=== PATIENT | male | born 1955 | race Caucasian/White ===

== ENCOUNTER 2020-12-23 17:24 | Outpatient (REF) | payer OTHER, SELFPAY ==
[2020-12-23 19:46] LABS: Calculated LDL 72 mg/dL (<100); Cholesterol 155 mg/dL (<200); HDL Cholesterol 37 mg/dL (40-60); Triglyceride 230 mg/dL (<150)
== END 2020-12-23 17:25 | disposition home or self-care (01) ==
LOC: NCHCN 17:24
PROVIDERS: PCP Internal Medicine; Visit Provider Internal Medicine
DX: Z00.00 Encounter for general adult medical examination without abnormal findings (principal); Z13.220 Encounter for screening for lipoid disorders
CPT/HCPCS: 80061; 82947

== ENCOUNTER 2023-01-07 18:33 | Outpatient (REF) | payer OTHER, SELFPAY ==
[2023-01-07 19:32] LABS: Calculated LDL 91 mg/dL (<100); Cholesterol 180 mg/dL (<200); HDL Cholesterol 44 mg/dL (40-60); Triglyceride 227 mg/dL (<150)
[2023-01-08 09:31] LABS: Glucose 107 mg/dL (74-106)
== END 2023-01-07 18:34 | disposition home or self-care (01) ==
LOC: NCHCN 18:33
PROVIDERS: PCP Internal Medicine; Visit Provider Internal Medicine
DX: Z00.00 Encounter for general adult medical examination without abnormal findings (principal); Z13.220 Encounter for screening for lipoid disorders; Z13.1 Encounter for screening for diabetes mellitus
CPT/HCPCS: 80061; 82947; 84153

== ENCOUNTER 2023-05-19 12:33 | Outpatient (REF) | payer OTHER, SELFPAY ==
--- OUTSIDE RECORDS SUMMARY | 2023-05-19 12:36 | XMS_ITS | Continuity of Care Document ---
Author Name Unknown Organization [facility] Address [address] [place] [address] Care Team Providers Care Video Specialist Name Role Phone Griffin Dick Primary Care Physician Encounter [facility] Date(s): 02/01/23 - 02/01/[address] [phone] Discharge Disposition: Home or Self Care Attending Physician: Griffin Dick MD Admitting Physician: Griffin Dick MD Referring Physician: Griffin Dick MD Results Laboratory List Name Date Lyme Antibody [facility] 02/01/23 Most recent to oldest [Reference Range]: 1 Lyme Ab [facility] [Negative] Negative 1 *NA* (02/01/23 1:30 PM) 1Result Comment: Test performed [place] [address] Social History Social History Type Response Sex Male Patient Care team information Care Team Personnel Name: Griffin Dick MD Position: No Access Member Role: Informed Provider Address: Address: [address] [address]
--- OUTSIDE RECORDS SUMMARY | 2023-05-19 12:36 | XMS_ITS | Continuity of Care Document ---
Author Name Unknown Organization [facility] Address [address] [place] [address] Care Team Providers Care Hardware Supplies Sales Representative Name Role Phone Griffin Dick Primary Care Physician [facility] Date[facility]s): 03/08/23 - 03/08/[address] [address] Discharge Disposition: Home or Self Care Attending Physician: Griffin Dick MD Admitting Physician: Griffin Dick MD Referring Physician: Griffin Dick MD Medications atorvastatin 80 mg oral tablet 30 tab, 0 Refill(s) Start Date: 03/09/23 Status: Ordered doxycycline hyclate 100 mg oral capsule 28 EA, TAKE ONE CAPSULE BY MOUTH TWICE A DAY UNTIL GONE, 0 Refill(s) Start Date: 03/09/23 Status: Ordered Metoprolol Succinate ER 25 mg oral tablet, extended release 30 tab, 0 Refill(s) Start Date: 03/09/23 Status: Ordered Social History Social History Type Response Sex Male Cardiac stress echo study * Event Display: Echocardiogram Stress Authored Date: [id number] Exercise stress test study * Yen Chun: PERFORM Derek Prieto MD: MODIFY, MODIFY Derek Prieto MD: MODIFY Event Display: Stress ECG Authored Date: [id number] JO-ANN CERVANTES :1955 Age:68 years Sex:Male Visit Date:03/08/2023 Primary Care Physician: Griffin Dick MD Ordering Provider :??Griffin Primeau ? ETT?Mychal Protocol Indication:??CP MPHR:??150 85% MPHR:??127 ?Stage ??Speed ??Incline ??Heart rate ??Blood Pressure ??Comments ??1 ??2.7 km/hr ??10% ?73 ??114/60 ?98% ??2 ??4.02 km/hr ??12% ?83 ??130/64 ?98% ??3 ??5.47 km/hr ??14% ?96 ??130/64 ?99% ??4 ??6.76 km/hr ??16% ?111 ??/ ?Breathing harder, leg pain ??5 ??8.05 km/hr ??18% ?/ ?6 ??8.85 km/hr ??20% ?/ ?7 ??9.65 km/hr ??22% ?/ ?8 ??10.46 km/hr ??24% ?/ ?Recovery ?/ ?2:00 ?/ ?4:00 ?/ ? Total Time:??11:02 Max Heart Rate:??111 % of MPHR achieved:??74 METS:13.70 ?? Functional Capacity: ??High?? Peak BP:??152/90 Chest Pain: ??Present, but not limiting? Reason Test Terminated:??Didn't want to go any faster, legs hurting, breathing hard ST Changes: ??1??mm Direction, leads:?? Arrhythmias:??NSR Heart rate and BP Response:??appropriate Kiran Treadmill Score: +2?MODERATE RISK, with predicted 5-year survival >90%.? Summary Impression:??Non-diagnostic stress test due to inability to achieve 85% MPHR. No evidence of ischemia at submaximal heart rate. Associated echocardiogram reassuring. Excellent exercise tolerance.?? Electronically Signed on 03/08/23 02:44 PM Yen Chun Electronically Signed on 03/08/23 04:44 PM Derek Prieto MD Electronically Signed on 03/08/23 05:09 PM Derek Prieto MD Reviewed by: Derek Prieto MD, Heather L Patient Care team information Care Team Personnel Name: Griffin Dick MD Position: No Access Member Role: Informed Provider Address: Address: [address] [address]- [place] Care Team Related Persons Name: DOMINICK CERVANTES Address: Home
--- OUTSIDE RECORDS SUMMARY | 2023-05-19 12:36 | XMS_ITS | Continuity of Care Document ---
Author Name Unknown Organization [facility] Address [address] [place] [address] Care Team Providers Care Video Clerk Name Role Phone Griffin Dick Primary Care Physician En[facility] Date(s): 02/26/23 - 02/26/[address] [phone] Discharge Disposition: Home or Self Care Attending Physician: Griffin Dick MD Admitting Physician: Griffin Dick MD Referring Physician: Griffin Dick MD Results Laboratory List Name Date Basic Metabolic Panel 02/26/23 Troponin-I 02/26/23 Most recent to oldest [Reference Range]: 1 BUN [7-18 mg/dL] 19 mg/dL *HI* (02/26/23 12:01 PM) Glucose Level [74-106 mg/dL] 98 mg/dL (02/26/23 12:01 PM) Potassium Level [3.5-5.1 mmol/L] 3.9 mmo l/L (02/26/23 12:01 PM) Troponin-I [0.0-76.2 pg/mL] 5.5 pg/mL (02/26/23 12:01 PM) Sodium Level [136-145 mmol/L] 141 mmol/L (02/26/23 12:01 PM) Calcium Level [8.5-10.1 mg/dL] 8.8 mg/dL (02/26/23 12:01 PM) CO2 [21-32 mmol/L] 33 mmol/L *HI* (02/26/23 12:01 PM) eGFR Non-AA [>=60] 64 (4/28/23 12:01 PM) eGFR AA [>=60] 64 (02/26/23 12:01 PM) Chloride Level [98-107 mmol/L] 102 mmol/ L (02/26/23 12:01 PM) Creatinine Level [0.70-1.30 mg/dL] 1.22 mg/dL (02/26/23 12:01 PM) Social History Social History Type Response Sex Male Patient Care team information Care Team Personnel Name: [facility], Griffin Crenshaw MD Position: No Access Member Role: Informed Provider Address: Address: [id number] [place] [address] Care Team Related Persons Name: DOMINICK CERVANTES
[2023-05-19 20:29] LABS: Uric Acid 5.5 mg/dL (3.5-7.2)
== END 2023-05-19 12:34 | disposition home or self-care (01) ==
LOC: NCHCN 12:33
PROVIDERS: PCP Internal Medicine; Visit Provider Nurse Practitioner Family
DX: M79.672 Pain in left foot (principal)
CPT/HCPCS: 84550

== ENCOUNTER 2024-01-17 18:34 | Outpatient (REF) | payer OTHER, SELFPAY ==
[2024-01-17 19:27] LABS: HCT 44.1 % (40.0-50.0); HGB 14.8 g/dL (13.5-17.5); MCHC 33.6 % (32.0-36.0); MCV 89 fL (80-95); MPV 9.9 fL (8.0-11.0); Platelet Count 209 10^3/uL (130-400); RBC 4.94 10^6/uL (4.36-5.78); RDW 12.3 % (11.8-14.1); RDW-SD 40.1 fL; WBC 7.12 10^3/uL (4.4-10.8)
[2024-01-17 20:01] LABS: Anion Gap 8.2 mmol/L (3-11); BUN 18 mg/dL (7-18); CO2 29.8 mmol/L (21.0-32.0); CREATININE 1.1 mg/dL (0.70-1.30); Calcium 8.8 mg/dL (8.5-10.1); Chloride 105 mmol/L (98-107); Estimated GFR 72.22 (mL/min/1.73m2); Glucose 98 mg/dL (74-106); Potassium 3.4 mmol/L (3.5-5.1); Sodium 143 mmol/L (136-145); TSH 3.28 uIU/Ml (0.36-3.74)
== END 2024-01-17 18:35 | disposition home or self-care (01) ==
LOC: NCHCN 18:34
PROVIDERS: PCP Internal Medicine; Visit Provider Internal Medicine
DX: I95.1 Orthostatic hypotension (principal)
CPT/HCPCS: 80048; 85027; 84443

== ENCOUNTER 2025-01-17 18:38 | Outpatient (REF) | payer OTHER, SELFPAY ==
[2025-01-17 22:12] LABS: Anion Gap 4.2 mmol/L (3-11); BUN 15 mg/dL (7-18); CO2 34.8 mmol/L (21.0-32.0); CREATININE 1.2 mg/dL (0.70-1.30); Calcium 9.3 mg/dL (8.5-10.1); Calculated LDL 80 mg/dL (<100); Chloride 106 mmol/L (98-107); Cholesterol 167 mg/dL (<200); Estimated GFR 64.65 (mL/min/1.73m2); Glucose 92 mg/dL (74-106); HDL Cholesterol 47 mg/dL (>or=40); Potassium 3.4 mmol/L (3.5-5.1); Sodium 145 mmol/L (136-145); Triglyceride 201 mg/dL (<150)
== END 2025-01-17 18:39 | disposition home or self-care (01) ==
LOC: NCHCN 18:38
PROVIDERS: PCP Internal Medicine; Visit Provider Internal Medicine
DX: Z00.00 Encounter for general adult medical examination without abnormal findings (principal)
CPT/HCPCS: 80048; 80061